=== PATIENT | male | born 2000 | race Two or more races ===

== ENCOUNTER 2022-03-01 05:00 | Emergency (ER) | payer SELFPAY ==
[~2022-03-01] VITALS: Ht 172.7 cm; Wt 69.9 kg
[2022-03-01 05:10] VITALS: BP_SYST 132
--- NOTE | 2022-03-01 05:10 | NUR ---
Pt placed to ER bed 06 with mother at bedside. Pt c/o sore throat x 3 days. Redness noted to throat with swelling to right tonsil.
--- NOTE | 2022-03-01 05:17 | NUR ---
DR. FARRAR AT BEDSIDE WITH PATIENT FOR MSE.
[2022-03-01] MEDS ORDERED: DEC4 PO (05:25)
[2022-03-01] MEDS ORDERED: NAPR-1172 PO (05:25)
[2022-03-01] MEDS ORDERED: AUG875 PO (05:25)
[2022-03-01] MEDS ORDERED: AMPICILLIN SODIUM/SULBACTAM NA 3 GM VIAL ONE (05:26)
[2022-03-01] MEDS ORDERED: KETOROLAC TROMETHAMINE 30 MG VIAL IVP ONE (05:30)
[2022-03-01] MEDS ORDERED: DEXAMETHASONE SOD PHOSPHATE 4 MG/ML VIAL IVP ONE (05:30)
[2022-03-01] MEDS ORDERED: ONDANSETRON HCL 4 MG/2 ML VIAL IVP ONE (05:30)
[2022-03-01] MEDS ORDERED: AMPICILLIN SODIUM/SULBACTAM NA 3 GM in NS 100 ML IV ONE (05:30)
[2022-03-01] MEDS ORDERED: NACL 0.9% 1,000 ML IV ONE (05:30)
[2022-03-01] MEDS ORDERED: ONDANSETRON HCL 4 MG/2 ML VIAL ONE (05:33)
--- NOTE | 2022-03-01 05:40 | NUR ---
# 20 gauge angiocath placed to LAC. Use of asceptic technique. Opsite placed over site. Blood return noted. Blood for lab drawn from site. Flushed with 10 cc of normal saline. No evidence of infiltration noted. Patient tolerated well.
[2022-03-01] MEDS ORDERED: ONDA-8 TL (05:43)
[2022-03-01] MEDS ORDERED: METOCLOPRAMIDE HCL 10 MG/2 ML VIAL IVP ONE (05:45)
[2022-03-01 06:18] LABS: CALCIUM 10.2 mg/dL (8.4-11.0); CREATININE 3.04 mg/dL (0.55-1.30)
[2022-03-01 06:23] LABS: BASOPHILS % (AUTO) 0.1 % (0.0-2.0); HEMATOCRIT 51.7 % (36-54); HEMOGLOBIN 17.7 g/dL (14.0-18.0); LYMPHOCYTES # (AUTO) 2.8 K/uL (1.0-5.5); LYMPHOCYTES % (AUTO) 14.3 % (20.5-51.5); MEAN CORPUSCULAR HEMOGLOBIN 29 pg (27-31); MEAN CORPUSCULAR HGB CONC 34 % (32-36); MEAN CORPUSCULAR VOLUME 85 fL (79.0-98.0); MONOCYTES # (AUTO) 1.4 K/uL (0.0-1.0); MONOCYTES % (AUTO) 7.1 % (1.7-9.3); NEUTROPHILS # (AUTO) 15.4 K/uL (1.8-7.7); NEUTROPHILS % (AUTO) 78.5 % (40.0-70.0); PLATELET COUNT (AUTO) 263 K/uL (130-430); RED BLOOD CELL COUNT(AUTO) 6.07 MIL/uL (4.2-6.2); WHITE BLOOD COUNT (AUTO) 19.5 K/uL (4.5-11.0)
[2022-03-01 06:24] LABS: ALBUMIN 5.3 g/dL (3.4-4.8); TOTAL BILIRUBIN 1.4 mg/dL (0.0-1.0)
[2022-03-01 06:40] VITALS: BP_SYST 132
--- NOTE | 2022-03-01 06:40 | NUR ---
Patient given written and verbal discharge instructions and verbalizes understanding. ER DR. FARRAR discussed with patient the results and treatment provided. Patient in stable condition. ID arm band removed. IV catheter removed intact and dressing applied, no active bleeding. Rx of AUGMENTIN, DECADRON, NAPROSYN, AND ZOFRAN given. Patient educated on pain management and to follow up with PMD. Pain Scale 0. Opportunity for questions provided and answered. Medication side effect fact sheet provided. PT D/C BY .
== END 2022-03-01 06:40 | disposition home or self-care (01) ==
LOC: SED 05:00
DX: J02.0 Streptococcal pharyngitis (principal); E86.0 Dehydration; R11.10 Vomiting, unspecified; R50.9 Fever, unspecified; Z79.899 Other long term (current) drug therapy
CPT/HCPCS: 99284; 96365; 96375; 80053; 85025; 87040; 36415; 83605; J0295; J1100; J1885; J2765; J2405